=== PATIENT | female | born 1955 | race American Indian/Alaskan Native ===

== ENCOUNTER 2018-09-24 07:43 | Day surgery (SDC) | payer OTHER | END 2018-09-24 10:55 | disposition home or self-care (01) | LOC: JASU-SURG 07:43 ==

== ENCOUNTER 2022-03-13 18:26 | Emergency (ER) | payer OTHER ==
[2022-03-13 19:17] VITALS: BMI 24.8
[2022-03-13] MEDS ORDERED: DIPHTH,PERTUSS(ACELL),TET 0.5 ML DISP.SYRIN IM ONE ×2 (22:56→23:32)
[2022-03-13] MEDS ORDERED: LIDOCAINE HCL 2% (50ML VIAL) SQ ONE (22:57)
[2022-03-13] MEDS ORDERED: ONDANSETRON *ODT* 4 MG TABLET SL ONE (23:01)
[2022-03-13] MEDS ORDERED: LIDOCAINE HCL 2% (20ML MULTI-DOSE VIAL) ONE (23:32)
[2022-03-13] MEDS ORDERED: ONDANSETRON *ODT* 4 MG TABLET ONE (23:32)
[2022-03-14 00:17] VITALS: BP 178/89; PULSE 62; RESP 18; TEMP 98.9
== END 2022-03-14 01:16 | disposition home or self-care (01) ==
LOC: JER 18:26
PROC: 3E0234Z Introduction of Serum, Toxoid and Vaccine into Muscle, Percutaneous Approach (ICD-10-PCS; principal; 2022-03-13)
DX: S63.286A Dislocation of proximal interphalangeal joint of right little finger, initial encounter (principal); W10.1XXA Fall (on)(from) sidewalk curb, initial encounter
CPT/HCPCS: 73090-TC-RT-FY; 73130-TC-RT-FY; 90471; 90715; 99285-25; Q0162